=== PATIENT | female | born 1985 | race Caucasian/White ===

== ENCOUNTER → 2019-12-02 06:17 | Outpatient (BNVA) | payer OTHER, SELFPAY | PROVIDERS: Family Provider Family Medicine; PCP Family Medicine; Visit Provider Obstetrics & Gynecology | DX: Z12.4 Encounter for screening for malignant neoplasm of cervix (principal); N93.9 Abnormal uterine and vaginal bleeding, unspecified | CPT/HCPCS: 88175 ==

== ENCOUNTER 2020-01-25 15:44 | Outpatient (CLI) | payer OTHER, SELFPAY ==
--- NOTE | 2020-01-25 16:07 | USCV_ITS ---
Larissa Bautista Age: 34 Gender: F : 1985 Exam Date: 01/25/2020 16:04 Ordering Phys: Cong Aparicio MD Technologist: Johnathan Perez Exam Location: [facility] Indication: LEG SWELLING PROCEDURES: Venous duplex imaging was performed in only the left lower extremity. The following venous structures were evaluated: common femoral vein, profunda vein, proximal portion of the greater saphenous vein, superficial femoral vein, and the popliteal vein. In addition, the posterior tibial and peroneal trunk were evaluated. Serial compression, augmentation maneuvers, and spectral Doppler flow evaluation were performed. FINDINGS: No DVT noted in the left lower extremity at this time. There is a SVT noted in the greater saphenous below the knee. The GSV appears free of clot at all other levels imaged. CONCLUSIONS No evidence of left lower extremity DVT. Superficial thrombus noted in the greater saphenous vein below the knee. GSV above the knee is patent. Rafael Mace MD (Electronically Signed) Final Date: 25 January 2020 17:36 S
== END 2020-01-25 15:45 | disposition home or self-care (01) ==
LOC: RAD 15:47
PROVIDERS: Family Provider Family Medicine; PCP Family Medicine; Visit Provider Family Medicine
DX: R60.0 Localized edema (principal); M79.89 Other specified soft tissue disorders
CPT/HCPCS: 93971

== ENCOUNTER 2020-05-25 09:07 | Outpatient (CLI) | payer OTHER, SELFPAY ==
--- NOTE | 2020-05-25 09:23 | XR_ITS ---
WS: [id number] THORACIC SPINE TECHNIQUE: AP and lateral views are performed. HISTORY: THORACIC REGION, BACK PAIN COMPARISON: None available. Thoracic vertebra are normally aligned. The interpedicular distances are maintained. No loss of verte bral body height or disc space height. XR/XR thoracic spine 3V* [id number] IMPRESSION: Negative thoracic spine radiographs.
== END 2020-05-25 09:08 | disposition home or self-care (01) ==
PROVIDERS: PCP Family Medicine; Visit Provider Family Medicine
DX: M54.6 Pain in thoracic spine (principal)
CPT/HCPCS: 72072

== ENCOUNTER → 2022-10-16 10:09 | Outpatient (BNVA) | payer MEDICAID, SELFPAY | PROVIDERS: PCP Family Medicine; Visit Provider Family Medicine | DX: F41.9 Anxiety disorder, unspecified (principal); F32.9 Major depressive disorder, single episode, unspecified; Z51.81 Encounter for therapeutic drug level monitoring | CPT/HCPCS: 80053; 85025 ==

== ENCOUNTER 2022-12-01 23:47 | Emergency (ER) | payer MEDICAID, SELFPAY ==
[2022-12-01 23:51] VITALS: BP 110/80; PULSE 86; RESP 15; TEMP 36.7; O2SAT 98
[2022-12-02 02:34] LABS: Basophils % 0.2 %; Eosinophils # 0.1 10^3/uL (0.0-0.8); Lymphocytes # 1.8 10^3/uL (0.8-4.8); Lymphocytes % 30.4 %; Mean Corpuscular HGB Conc 31.8 g/dL (30.0-36.0); Mean Corpuscular Hemoglobin 28.4 pg (28.0-34.0); Mean Corpuscular Volume 89.2 fl (81-99); Monocytes # 0.3 10^3/uL (0.2-0.9); Monocytes % 5.5 %; Neutrophils # 3.67 10^3/uL (1.8-7.7); Neutrophils % 62.7 %; Nucleated Red Blood Cells % 0 %; Platelet Count 147 10^3/cmm (130-400); Red Blood Count 4.93 10^6/uL (4.1-5.3); Red Cell Distribution Width 13.6 % (12.1-15.1); White Blood Count 5.9 10^3/uL (4.0-10.0)
[2022-12-02 02:44] LABS: HCG, Serum Qual Negative (Negative)
[2022-12-02 02:51] LABS: Alanine Aminotransferase 14 U/L (0-33); Albumin Level 4.7 g/dL (3.5-5.2); Alkaline Phosphatase 51 U/L (35-105); Anion Gap 17.5 (5-19); Aspartate Amino Transferase 13 U/L (0-32); Blood Urea Nitrogen 9 mg/dL (6-20); C Reactive Protein 3.2 mg/L (0.0-4.9); Calcium 9.8 mg/dL (8.5-10.5); Carbon Dioxide 24 mmol/L (22-29); Chloride 100 mmol/L (98-107); Globulin 2.7 g/dL (1.3-4.6); Glomerular Filtration Rate 94.7 mL/min (90-130); Glucose 80 mg/dL (65-115); Lipase 47 U/L (13-60); Osmolality Calculated 282 mOsm/kg (285-295); Potassium 4.5 mmol/L (3.5-5.1); Sodium 137 mmol/L (136-145); Total Bilirubin 0.6 mg/dL (0.15-1.2); Total Protein 7.4 g/dL (6.6-8.7)
[2022-12-02 03:08] LABS: Add Urine Microscopic? NO; Charge for UA Resulting for Rev
[2022-12-02 03:10] LABS: Bilirubin Urine Neg (Negative); Blood Urine Neg (Negative); Glucose Urine UA Norm (Normal); Ketones Urine 2+ (Negative); Leukocyte Esterase Urine Negative (Negative); Nitrate Urine Negative (Negative); Protein Urine Neg (Negative); Urine Appearance Clear (CLEAR); Urine Color Yellow (Yellow); Urobilinogen Urine Norm (Negative); pH Urine 5 (5-7)
[2022-12-02 04:25] VITALS: BP 114/64; PULSE 81; RESP 16; O2SAT 98
[2022-12-02] MEDS: ketorolac 30 mg/mL INJ IVP (05:02)
[2022-12-02] MEDS: oxyCODONE-APAP 5-325 mg Tablet 2 TAB PO (05:02)
[2022-12-02 05:12] VITALS: BP 114/64; PULSE 81; RESP 16; TEMP 36.7; O2SAT 98
--- NOTE | 2022-12-02 15:53 | W.ED.BACK ---
HPI - Back Pain/Injury General: Chief Complaint: Back Pain/Injury Stated Complaint: abd pain Time Seen by Provider: 12/02/22 03:32 Source: patient and family History of Present Illness: 37 year old female who is now on her third antibiotic for a urinary tract infection. She was diagnosed with a bladder/kidney infection as an outpatient based on urinalysis and symptoms. She continues to have pain. She has had three to four doses of augmentin currently, as urine culture came back with E coli, evidently sensitive to this. She denies any fever. She has nausea. No vomiting. No diarrhea. Pain is mainly to the bilateral flanks. MD elicited complaint: back pain Pertinent past history: other Onset (ago): day(s) Timing: constant Severity: moderate Similar Symptoms Previously: No Quality: aching Location: left flank and right flank Radiation: none Exacerbating factors: movement Relieving factors: none Associated symptoms: Reports abdominal pain, chills, nausea and urinary frequency; Deny fever(s), hematuria, tingling/numbness/burning or vomiting Review of Systems Const: Reports: chills; Denies: fever(s) Eyes: Denies: change in vision Card: Denies: chest pain or palpitations Resp: Denies: dyspnea, productive cough, non-productive cough or wheezing GI: Reports: abdominal pain and nausea; Denies: vomiting : Denies: hematuria Skin/Breast: Denies: rash Neuro: Denies: headache(s), weakness in extremities, dizziness or confusion PFSH ED PFSH: Medical History Anxiety and depression No pertinent past medical history Denies diabetes, asthma, hypertension, seizures, DVT/PE. PCP: Dr. Aparicio Surgical History S/P breast augmentation 2007-Performed in [facility]----------> both sides S/P section x 4 2011- Dr Dunlap in [place] 2012- Dr Dunlap in [place] 2014- Dr Lee in [place] 08/26/2017-Dr Moreno at [facility] S/P dilation and curettage Performed by Dr. Steele at [facility] on 03/02/2016 for missed . She was Rh- and received RhoGAM after the procedure S/P tubal ligation Tubal ligation done at time of on 08/26/2017-pathology showed complete transection with normal morphology bilaterally. Family History Grandfather Diabetes maternal Heart disease paternal Grandmother Breast cancer maternal, diagnosed in her 50s Mother Breast cancer pagets disease of the breast, diagnosed in her 60s; had a mastectomy Sister Hyperlipidemia Colon polyp Twin sister had precancerous colon polyps removed at age 31 Brother Heart disease Family/Other Heart disease paternal uncles Denies family history of Colon cancer Ovarian cancer Hypertension Uterine cancer Thyroid condition Stroke Social History Smoking and tobacco status: former smoker Alcohol intake: unknown Substance/Drug Use: unknown Additional social history: - Physical Exam Const: COMMON NORMALS: no acute distress GENERAL APPEARANCE: cooperative; not ill appearing and not frail appearing HENMT: COMMON NORMALS: normocephalic, atraumatic and Normal external nose present HEAD & SCALP: normocephalic and atraumatic FACE & SINUS: normal facial exam and face symmetric NOSE: Normal external nose present Eye: COMMON NORMALS: Equal, round and reactive pupils present and EOMs intact bilaterally PUPIL: Yes Equal, round and reactive pupils present Neck/C-Spine: GENERAL: Yes trachea midline Chest: CHEST: Yes Symmetrical chest wall rise Resp: COMMON NORMALS: normal respiratory effort, No retractions, No use of accessory muscles and clear to auscultation bilaterally AUSCULTATION: clear to auscultation bilaterally Cardio: COMMON NORMALS: regular rate and regular rhythm RATE: regular rate RHYTHM: regular rhythm GI: COMMON NORMALS: Normal to inspection, nondistended, normoactive bowel sounds present Extremity: COMMON NORMALS: no pedal edema Neuro: AGUSTIN COMA SCALE: document GCS findings Agustin coma scale eye opening: Spontaneous Agustin coma scale verbal response: Orientated Agustin coma scale motor response: Obey commands Agustin coma scale total score: 15 SENSORY EXAM: Yes extremities (intact) Psych: COMMON NORMALS: speech normal SPEECH: Yes normal speech Skin: COMMON NORMALS: no rashes or lesions noted GENERAL SKIN EXAM: no rashes or lesions noted Course Vital Signs: Vital signs: Vital Signs Temperature 98.0 F 12/02/22 05:12 Pulse Rate 81 12/02/22 05:12 Respiratory Rate 16 12/02/22 05:12 Blood Pressure 114/64 12/02/22 05:12 Pulse Oximetry 98 12/02/22 05:12 Oxygen Delivery Me thod Room Air 12/01/22 23:51 MDM - Back Pain/Injury Medical Decision Making 37 year old female with bilateral flank pain. Her urinalysis shows two plus ketones, and is otherwise normal. her CRP is normal at 3. she has no Leukocytosis. Hemoglobin is 14. HCG is negative. Liver enzymes and lipase are normal. There is no hematuria. She appears to be experiencing continued renal colic from prior urinary tract infection. Will treat symptoms. She will continue her augmentin given UTI recurrence. She knows to return for worsening symptoms despite treatment. She was encouraged to hydrate orally. Labs 12/02/22 02:15 12/02/22 02:15 Laboratory Results WBC 5.9 10^3/uL (4.0-10.0) 12/02/22 02:15 RBC 4.93 10^6/uL (4.1-5.3) 12/02/22 02:15 Hgb 14.0 g/dL (11.5-15.3) 12/02/22 02:15 Hct 44.0 % (37.0-47.0) 12/02/22 02:15 MCV 89.2 fl (81-99) 12/02/22 02:15 MCH 28.4 pg (28.0-34.0) 12/02/22 02:15 MCHC 31.8 g/dL (30.0-36.0) 12/02/22 02:15 RDW 13.6 % (12.1-15.1) 12/02/22 02:15 Plt Count 147 10^3/cmm (130-400) 12/02/22 02:15 MPV 12.0 fL (7.4-10.4) H 12/02/22 02:15 Neut % (Auto) 62.7 % 12/02/22 02:15 Lymph % (Auto) 30.4 % 12/02/22 02:15 [place] % (Auto) 5.5 % 12/02/22 02:15 Eos % (Auto) 1.0 % 12/02/22 02:15 Baso % (Auto) 0.2 % 12/02/22 02:15 Neut # (Auto) 3.67 10^3/uL (1.8-7.7) 12/02/22 02:15 Lymph # (Auto) 1.8 10^3/uL (0.8-4.8) 12/02/22 02:15 [place] # (Auto) 0.3 10^3/uL (0.2-0.9) 12/02/22 02:15 Eos # (Auto) 0.1 10^3/uL (0.0-0.8) 12/02/22 02:15 Baso # (Auto) 0.0 10^3/uL (0.0-0.1) 12/02/22 02:15 Nucleated RBC % (auto) 0 % 12/02/22 02:15 Nucleated RBCs # 0.0 /100WBC 12/02/22 02:15 Sodium 137 mmol/L (136-145) 12/02/22 02:15 Potassium 4.5 mmol/L (3.5-5.1) 12/02/22 02:15 Chloride 100 mmol/L (98-107) 12/02/22 02:15 Carbon Dioxide 24 mmol/L (22-29) 12/02/22 02:15 Anion Gap 17.5 (5-19) 12/02/22 02:15 BUN 9 mg/dL (6-20) 12/02/22 02:15 Creatinine 0.7 mg/dL (0.5-0.9) 12/02/22 02:15 GFR Calculation 94.7 mL/min (90-130) 12/02/22 02:15 Glucose 80 mg/dL (65-115) 12/02/22 02:15 Calculated Osmolality 282 mOsm/kg (285-295) L 12/02/22 02:15 Calcium 9.8 mg/dL (8.5-10.5) 12/02/22 02:15 Total Bilirubin 0.6 mg/dL (0.15-1.2) 12/02/22 02:15 AST 13 U/L (0-32) 12/02/22 02:15 ALT 14 U/L (0-33) 12/02/22 02:15 Alkaline Phosphatase 51 U/L (35-105) 12/02/22 02:15 C-Reactive Protein 3.2 mg/L (0.0-4.9) 12/02/22 02:15 Total Protein 7.4 g/dL (6.6-8.7) 12/02/22 02:15 Albumin 4.7 g/dL (3.5-5.2) 12/02/22 02:15 Globulin 2.7 g/dL (1.3-4.6) 12/02/22 02:15 Lipase 47 U/L (13-60) 12/02/22 02:15 HCG, Qual Negative (Negative) 12/02/22 02:15 Urine Color Yellow (Yellow) 12/02/22 02:54 Urine Appearance Clear (CLEAR) 12/02/22 02:54 Urine pH 5 (5-7) 12/02/22 02:54 Ur Specific [place] 1.010 (1.005-1.030) 12/02/22 02:54 Urine Protein Neg (Negative) 12/02/22 02:54 Urine Glucose (UA) Norm (Normal) 12/02/22 02:54 Urine Ketones 2+ (Negative) H 12/02/22 02:54 Urine Blood Neg (Negative) 12/02/22 02:54 Urine Nitrate Negative (Negative) 12/02/22 02:54 Urine Bilirubin Neg (Negative) 12/02/22 02:54 Urine Urobilinogen Norm mg/dL (Negative) 12/02/22 02:54 Ur Leukocyte Esterase Negative (Negative) 12/02/22 02:54 Discharge Plan Discharge Patient Disposition: Home Clinical Impression: Renal colic Condition: Stable Prescriptions: New hydrocodone-acetaminophen 5-325 mg tablet 1 tab PO Q8H PRN (Reason: pain) Qty: 7 0RF ketorolac 10 mg tablet 10 mg PO TID PRN (Reason: pain) Qty: 10 0RF No Action fluoxetine 20 mg capsule 20 mg PO DAILY Qty: 90 3RF buspirone 7.5 mg tablet 7.5 mg PO TID Qty: 270 3RF Discharge Orders: Discharge ED (Routine); Ordered 12/02/22 Ordered By: Jan Powell Referrals: Cong Aparicio MD [Primary Care Provider] - 1-3 days Patient Instructions: Renal Colic (ED), Opioid Safety, Pain Management Activity Restrictions/Additional Instructions: Continue your antibiotics to ensure your infection is fully treated. Alternate medications as described for pain control. Return for fever greater than 100 despite antibiotics, vomiting liquids or medications, worsening pain despite treatment, other concerning symptoms Coding Level of Care Code ED Project Director for [facility]
== END 2022-12-02 05:13 | disposition home or self-care (01) ==
PROVIDERS: Emergency Provider Emergency Medicine; PCP Family Medicine
DX: N23 Unspecified renal colic (principal); Z87.891 Personal history of nicotine dependence
CPT/HCPCS: 36415; 80053; 81003; 83690; 84703; 85025; 86140; 96374; 99284; J1885

== ENCOUNTER → 2022-12-19 11:43 | Outpatient (BNVA) | payer MEDICAID, SELFPAY | PROVIDERS: PCP Family Medicine; Visit Provider Family Medicine | DX: Z34.90 Encounter for supervision of normal pregnancy, unspecified, unspecified trimester (principal); N76.0 Acute vaginitis | CPT/HCPCS: 87086; 87481; 87491; 87512; 87591; 87624; 87661; 87799 ==

== ENCOUNTER → 2023-03-22 11:22 | Outpatient (BNVA) | payer MEDICAID, SELFPAY | PROVIDERS: PCP Family Medicine; Visit Provider Nurse Practitioner Family | DX: R39.9 Unspecified symptoms and signs involving the genitourinary system (principal) | CPT/HCPCS: 81000 ==

== ENCOUNTER → 2023-04-25 10:50 | Outpatient (BNVA) | payer OTHER, MEDICAID, SELFPAY | PROVIDERS: PCP Family Medicine; Visit Provider Family Medicine | DX: R30.0 Dysuria (principal) | CPT/HCPCS: 87086 ==

== ENCOUNTER 2023-08-06 06:08 | Outpatient (CLI) | payer OTHER, MEDICAID, SELFPAY ==
--- NOTE | 2023-08-06 06:12 | US_ITS ---
WS: [id number] US pelv w/transvag [id number] HISTORY: Pelvic pain chronic- COMPARISON: None available. Uterus: 9.1 cm x 4.8 cm x 3.8 cm. Normal size anteverted uterus. No fibroid or mass. Endometrium: 1.1 cm. Normal. Right ovary: 2.8 cm x 2.2 cm x 3.0 cm. Normal size and vascularity, no cystic or solid masses. Severa l small follicles within the ovary. No cyst or solid mass. Left ovary: 2.6 cm x 2.5 cm x 1.9 cm. Normal size and vascularity, no cystic or solid masses. Several small follicles within the ovary. No cyst or solid mass. Small amount of free fluid in the cul-de-sac. IMPRESSION: Normal pelvic ultrasound. No cystic or solid mass within the ovaries. No fibroid.
== END 2023-08-06 06:09 | disposition home or self-care (01) ==
LOC: RAD 06:09
PROVIDERS: PCP Family Medicine; Visit Provider Family Medicine
DX: R10.2 Pelvic and perineal pain (principal); G89.29 Other chronic pain
CPT/HCPCS: 76830; 76856

== ENCOUNTER → 2023-12-24 14:21 | Outpatient (BNVA) | payer OTHER, MEDICAID, SELFPAY | PROVIDERS: PCP Family Medicine; Visit Provider Clinical Nurse Specialist Adult Health | DX: R30.0 Dysuria (principal); N39.0 Urinary tract infection, site not specified | CPT/HCPCS: 81000; 87077; 87086; 87184 ==